=== PATIENT | male | born 1940 | race Caucasian/White ===

== ENCOUNTER 2019-06-02 09:19 | Day surgery (SDC) | payer MEDICARE, OTHER ==
--- NOTE | 2019-06-02 08:08 | HP ---
DATE OF SURGERY: 06/02/2019 HISTORY OF PRESENT ILLNESS: The patient is a 78 year-old last colonoscopy was ten years or so ago. No polyps. No bloody stools. No change in bowel movements. Family history negative for colon cancer. He is in need of follow up screening colonoscopy. PAST MEDICAL HISTORY: Hypertension. PAST SURGICAL HISTORY: Colonoscopy. Reported last surgery was 40 years ago. Hernia repair in the past. Tonsillectomy. Cataract surgery in the past. MEDICATIONS: Lisinopril, amlodipine, aspirin. ALLERGIES: NKDA. FAMILY HISTORY: Heart disease. SOCIAL HISTORY: No smoking or alcohol abuse. REVIEW OF SYSTEMS: Fourteen systems reviewed. No chest pain or palpitations. Other systems negative or noncontributory as above and per preadmission questionnaire. PHYSICAL EXAMINATION: GENERAL: No acute distress. HEENT: Sclerae nonicteric. NECK: No JVD. CHEST: Equal excursion, nonlabored breathing. CVS: Regular rate and rhythm. ABDOMEN: Soft, nontender. EXTREMITIES: No significant edema. NEURO: Alert, oriented, moving extremities symmetrically. No gross motor deficits noted. RECTAL: Deferred timed to endoscopy exam. IMPRESSION: Need for follow up screening colonoscopy. I feel the patient is a candidate. Shown the risk sheet, explained the procedure in detail including but not limited to bleeding or infection, risk of bowel injury or perforation possibly requiring open procedure, risk of missed or nondiagnosis or incomplete exam possibly requiring barium enema, other studies or procedures, general risk of anesthesia or sedation, risk of bowel prep but not limited to. Consent was obtained, will proceed with outpatient follow up screening colonoscopy.
[~2019-06-02 09:19] MED LIST: Lactated Ringers 1,000 ML IV SCH
[2019-06-02] MEDS ORDERED: Lactated Ringers 1,000 ML IV ONE (09:51)
[2019-06-02] MEDS ORDERED: Ketamine HCl 50 MG/ML ONE (11:00)
[2019-06-02] MEDS ORDERED: DIPRIVAN 200 MG/20 ML IV ONE ×2 (11:00→11:21)
[2019-06-02 12:08] VITALS: O2SAT 98
[2019-06-02 13:46] VITALS: BP 130/78; PULSE 77
--- NOTE | 2019-06-03 12:13 | OP ---
SURGERY DATE/TIME: 06/02/2019 1105 PREOPERATIVE DIAGNOSIS: Need for screening colonoscopy. POSTOPERATIVE DIAGNOSES: 1) Small raised lesion early polyps versus hyperplastic lesion, path pending transverse colon and sigmoid colon x2. 2) Diverticulosis. 3) Fair bowel prep. 4) Small internal and external hemorrhoids. 5) Withdrawal time 9 minutes. PROCEDURES: Colonoscopy to cecum. SURGEON: Dr. Andrea Cook. ANESTHESIA: MAC. ESTIMATED BLOOD LOSS: Minimal. INDICATIONS: As noted above. Risks and benefits explained in detail but not limited to and consent obtained. DESCRIPTION OF PROCEDURE AND FINDINGS: The patient is taken to the operating room. MAC anesthesia introduced. After official time out and no disagreement with planned procedure, digital rectal exam did not reveal any rectal masses. Video colonoscope inserted and passed up through the slightly tortuous sigmoid, descending, transverse and ascending colon. Requiring positioning on his back, external pressure the scope finally reached the cecum. Appendiceal orifice and valve well visualized. Prep overall was fair. There was a little bit of liquidy stool and a couple little small stool balls but just slightly limiting the exam for very tiny lesions. These were suction irrigated as clear as possible. The scope is slowly and carefully withdrawn over the next 9 minutes. He had a small raised lesion versus early polyp or hyperplastic lesion in transverse colon that was removed with hot biopsy forceps. There were two more small ones in the sigmoid colon that were removed with hot biopsy forceps. Otherwise he had some diverticulosis mainly in the left colon. He had some small internal and external hemorrhoids. There were no signs of any large polyps, masses or obstructing lesions. Findings discussed with the family out in the waiting area, will see him back in the office in a couple of weeks to go over the results.
== END 2019-06-02 12:45 | disposition home or self-care (01) ==
LOC: SDC 09:19
PROVIDERS: ATTEND Surgery
DX: Z12.11 Encounter for screening for malignant neoplasm of colon (principal); K63.5 Polyp of colon; K57.30 Diverticulosis of large intestine without perforation or abscess without bleeding; K64.4 Residual hemorrhoidal skin tags; K64.8 Other hemorrhoids; I10 Essential (primary) hypertension; Z79.899 Other long term (current) drug therapy
CPT/HCPCS: 88305; 99100; J2704